=== PATIENT | male | born 1965 | race Caucasian/White ===

== ENCOUNTER 2017-09-29 08:35 | Observation (INO) | payer BC ==
[~2017-09-29] VITALS: Ht 172.7 cm; Wt 97.7 kg
[~2017-09-29 08:35] MED LIST: ALPR0.254 PO; ALPR0.2550; ASP325T PO; HYDR-3454 PO; MULT-974 PO
--- NOTE | 2017-09-29 08:55 | ED Chest Pain ---
General Stated Complaint: CP Source: patient Exam Limitations: no limitations History of Present Illness Date Seen by Provider: September 29, 2017 Time Seen by Provider: 08:50 Initial Comments Patient presents to the ER by private conveyance with a chief complaint that off -and-on he's had some pressure in the middle of his chest that he is associated past with gas pain. This head pressure started up sometime Friday, 2 days ago. It went away whenever he laid down and rested. Friday he also notes both of his feet were swollen with some pitting edema that went away after he put him up and rested all day. He didn't any problems yesterday and then today he woke up fine but started having the pressure again mounting and getting stronger. He's never had feet swelling before. He has had a cardiac workup by Dr. Whitfield with stress test several years ago an echocardiogram. He's never had a heart attack but he has a maternal history of heart attack at age 42. He does not smoke but he does chew about half a can per day and drinks beer. He does not follow a primary care doctor but he does take a blood pressure medicine as well as antacid that he did take this morning. He has not had any aspirin today. He does not take any blood thinners. She does not have any known thyroid , cholesterol, diabetes. Pain does not radiate nor is accompanied by sweats, nausea, cough, shortness of breath. Allergies and Home Medications Allergies Coded Allergies: No Known Drug Allergies (Unverified , 06/28/09) Home Medications Alprazolam 0.25 Mg Tablet, 0.25 PO PRN PRN for ANXIETY, (Reported) Aspirin 325 Mg Tab, 325 MG PO DAILY, (Reported) Hydrocodone Bit/Acetaminophen 1 Each Tablet, 1-2 TAB PO EVERY 4-6HRS PRN for PAIN Prescribed by: TASHA CALLOWAY on 07/12/14 1026 Multivitamin 1 Each Tablet, 1 EACH PO DAILY, (Reported) Patient Home Medication List Home Medication List Reviewed: Yes Review of Systems Constitutional: No chills, No diaphoresis EENTM: No Blurred Vision, No Double Vision Respiratory: Denies Cough, Denies Shortness of Air Cardiovascular: See HPI, Edema; Denies Irregular Heart Rate, Denies Palpitations, Denies Syncope Gastrointestinal: Denies Abdomen Distended, Denies Abdominal Pain, Denies Constipated, Denies Diarrhea, Denies Nausea Genitourinary: Denies Burning, Denies Discharge, Denies Drainage Musculoskeletal: No back pain, No joint pain Skin: No pruritus, No rash Psychiatric/Neurological: Denies Headache, Denies Numbness Past Ghdehht-Poylnv-Lsqhch Hx Patient Social History Alcohol Use: Regular Use Alcohol Beverage of Choice: Beer Recreational Drug Use: No Smoking Status: Never a Smoker Type Used: Smokeless Tobacco (0.5 can/day) Recent Foreign Travel: No Contact w/Someone Who Travel: No Immunizations Up To Date Tetanus Booster (TDap): Less than 5yrs Past Medical History Reproductive Disorders: No Gastroesophageal Reflux Anxiety Family Medical History Chest pain 19 MOTHER Family history: Coronary thrombosis 19 MOTHER (MOTHER HAD OPEN HEART SURGERY) Family history: Diabetes mellitus 19 FATHER, Onset:60 years & older (LATE ONSET DM ) 19 MOTHER G8 SISTER (SISTER HAS INSULIN DEP DM) Heart disease 19 MOTHER Hypercholesterolemia 19 MOTHER Myocardial infarction 19 MOTHER ( FROM [place] AT AGE 52) Physical Exam Vital Signs Vital Signs - First Documented 09/29/17 08:40 Temp 97.5 Pulse 89 Resp 18 B/P (MAP) 175/119 (137) O2 Delivery Room Air Capillary Refill : General Appearance: No Apparent Distress, WD/WN HEENT: PERRL/EOMI, Pharynx Normal, Moist Mucous Membranes Neck: Full Range of Motion, Normal Inspection, Non Tender, Supple; No JVD Respiratory: Chest Non Tender, Lungs Clear, Normal Breath Sounds, No Accessory Muscle Use, No Respiratory Distress Cardiovascular: Regular Rate, Rhythm, No Gallop, No JVD, No Murmur, Normal Peripheral Pulses, Other (trace pedal edema) Gastrointestinal: Normal Bowel Sounds, Non Tender, Soft Extremity: Normal Capillary Refill, Normal Inspection, Non Tender, No Calf Tenderness, Pedal Edema (trace, bilateral) Neurologic/Psychiatric: Alert, Oriented x3 Skin: Normal Color, Warm/Dry Progress/Results/Core Measures Results/Orders Lab Results Laboratory Tests Test 09/29/17 09:15 Range/Units White Blood Count 8.8 4.3-11.0 10^3/uL Red Blood Count 4.26 L 4.35-5.85 10^6/uL Hemoglobin 15.1 13.3-17.7 G/DL Hematocrit 42 40-54 % Mean Corpuscular Volume 97 80-99 FL Mean Corpuscular Hemoglobin 35 H 25-34 PG Mean Corpuscular Hemoglobin Concent 36 32-36 G/DL Red Cell Distribution Width 11.2 10.0-14.5 % Platelet Count 222 130-400 10^3/uL Mean Platelet Volume 8.9 7.4-10.4 FL Neutrophils (%) (Auto) 69 42-75 % Lymphocytes (%) (Auto) 11 L 12-44 % Monocytes (%) (Auto) 12 0-12 % Eosinophils (%) (Auto) 8 0-10 % Basophils (%) (Auto) 0 0-10 % Neutrophils # (Auto) 6.1 1.8-7.8 X 10^3 Lymphocytes # (Auto) 1.0 1.0-4.0 X 10^3 Monocytes # (Auto) 1.1 H 0.0-1.0 X 10^3 Eosinophils # (Auto) 0.7 H 0.0-0.3 10^3/uL Basophils # (Auto) 0.0 0.0-0.1 10^3/uL Prothrombin Time 13.1 12.2-14.7 SEC INR Comment 1.0 0.8-1.4 Activated Partial Thromboplast Time 28 24-35 SEC Sodium Level 130 L 135-145 MMOL/L Potassium Level 4.0 3.6-5.0 MMOL/L Chloride Level 98 98-107 MMOL/L Carbon Dioxide Level 21 21-32 MMOL/L Anion Gap 11 5-14 MMOL/L Blood Urea Nitrogen 9 7-18 MG/DL Creatinine 0.84 0.60-1.30 MG/DL Estimat Glomerular Filtration Rate > 60 BUN/Creatinine Ratio 11 Glucose Level 167 H 70-105 MG/DL Calcium Level 9.4 8.5-10.1 MG/DL Magnesium Level 1.9 1.8-2.4 MG/DL Total Bilirubin 0.8 0.1-1.0 MG/DL Aspartate Amino Transf (AST/SGOT) 20 5-34 U/L Alanine Aminotransferase (ALT/SGPT) 22 0-55 U/L Alkaline Phosphatase 71 40-136 U/L Myoglobin 35.6 10.0-92.0 NG/ML Troponin I < 0.30 <0.30 NG/ML B-Type Natriuretic Peptide 13.9 <100.0 PG/ML Total Protein 7.3 6.4-8.2 GM/DL Albumin 4.4 3.2-4.5 GM/DL Lipase 16 8-78 U/L My Orders Orders - BONIFACIO BRITT Cbc With Automated Diff (09/29/17 08:49) Magnesium (09/29/17 08:49) Chest 1 View, Ap/Pa Only (09/29/17 08:49) Ekg Tracing (09/29/17 08:49) Cardiac Profile 1 (09/29/17 08:49) Comprehensive Metabolic Panel (09/29/17 08:49) Myoglobin Serum (09/29/17 08:49) Protime With Inr (09/29/17 08:49) Partial Thromboplastin Time (09/29/17 08:49) O2 (09/29/17 08:49) Monitor-Rhythm Ecg Trace Only (09/29/17 08:49) Lipid Panel (09/30/17 06:00) Aspirin Chewable Tablet (Baby Aspirin Ch (09/29/17 09:00) Nitroglycerin 0.4 Mg Btl 25's (Nitrostat (09/29/17 09:00) Saline Lock/Iv-Start (09/29/17 08:49) Lipase (09/29/17 08:49) BNP (09/29/17 08:49) Medications Given in ED Current Medications Medications Dose Ordered Sig/Tami Route Start Time Stop Time Status Last Admin Dose Admin Aspirin 324 mg ONCE ONCE PO 09/29/17 09:00 09/29/17 09:01 DC 09/29/17 09:06 324 MG Nitroglycerin 0.4 mg UD PRN SL 09/29/17 09:00 09/29/17 09:07 0.4 MG Vital Signs/I&O 09/29/17 09/29/17 08:40 09:06 Temp 97.5 97.5 Pulse 89 Resp 18 B/P (MAP) 175/119 (137) O2 Delivery Room Air Progress Progress Note : Time: 08:56 Progress Note Give him some aspirin do a chest pain workup. If his initial troponin and EKG are normal may try a GI cocktail in addition. We'll also speak with his manager reporting. November [address] Whitfield: Normal global systolic function with an EF of 55%. Mild mitral and tricuspid regurgitation. Pulmonary artery systolic pressure 25-30 mmHg. Low risk by the EDACS Score. If the patient also has: (1) EKG without new ischemic changes and (2) negative initial and 2-hour troponins, then this patient is safe for discharge to early outpatient follow-up investigation (or proceed to earlier inpatient testing). If EKG with ischemic changes or positive troponin, they are not low risk and require normal risk stratification. Initial ECG Impression Date: September 29, 2017 Initial ECG Impression Time: 08:47 Initial ECG Rate: 94 Initial ECG Rhythm: Normal Sinus Initial ECG Intervals: Normal Initial ECG Impression: Normal, Nonspecific Changes Initial ECG Comparisson: Unchanged Comment Some respiratory artifact but no ST elevation or depression. Incomplete right bundle-branch block. Diagnostic Imaging Diagonstic Imaging: Xray (1v) Plain Films/CT/US/NM/MRI: chest Comments NAME: [facility] REC#: [id number] PT STATUS: REG ER : 1965 PHYSICIAN: BONIFACIO BRITT MD ADMIT DATE: 09/29/17/ER Draft Date of Exam:09/29/17 CHEST 1 VIEW, AP/PA ONLY INDICATION: Chest pressure. TECHNIQUE: A frontal chest was obtained at 0901 hours. COMPARISON: 10/25/2013. FINDINGS: The heart and mediastinal silhouette are normal in appearance. The lungs are clear. There is no pneumothorax or pleural fluid. IMPRESSION: Negative chest. Dictated on workstation # [id number] Dict: 09/29/17 0908 Trans: 09/29/17 0909 [id number] Interpreted by: DANY NAVA MD Electronically signed by: Reviewed: Reviewed by Me Consults : Consulting Physician: ESTHER HILTON MD FACP FACC CCDS Consults Notes Recommends observation and ACS rule out. He would like the patient put in under the hospitalists and will eventually need the patient to establish care with a primary care provider and he will be happy to consult. Departure Communication (Admissions) Time/Spoke to Admitting Phy: 10:09 Dr Nichole: Discussed case lab imaging findings and he will see the patient. Time/Spoke to Consulting Phy: 10:08 ACS r/O per Denny Hilton Impression Primary Impression: ACS (acute coronary syndrome) Additional Impression: Chest tightness or pressure Disposition: 09 ADMITTED INPATIENT Condition: Stable Admissions Decision to Admit Reason: Admit from ER (General) Decision to Admit/Date: September 29, 2017 Time/Decision to Admit Time: 10:09 Departure-Patient Inst. Referrals: SAYRA NICHOLE DO (PCP/Family) Primary Care Physician BONIFACIO BRITT September 29, 2017 08:55
[2017-09-29] MEDS ORDERED: NITROGLYCERIN 0.4 MG SL TABS BTL 25'S SL PRN (09:00)
[2017-09-29] MEDS ORDERED: ASPIRIN 81 MG CHEW (CHILDREN'S ASA) PO ONE (09:00)
--- NOTE | 2017-09-29 09:09 | Diagnostic Imaging Report ---
INDICATION: Chest pressure. TECHNIQUE: A frontal chest was obtained at 0901 hours. COMPARISON: 10/25/2013. FINDINGS: The heart and mediastinal silhouette are normal in appearance. The lungs are clear. There is no pneumothorax or pleural fluid. IMPRESSION: Negative chest. Dictated by: Dictated on workstation # [id number]
[2017-09-29 09:27] LABS: BASOPHILS % (AUTO) 0 % (0-10); EOSINOPHILS # (AUTO) 0.7 10^3/uL (0.0-0.3); EOSINOPHILS % (AUTO) 8 % (0-10); HEMATOCRIT 42 % (40-54); HEMOGLOBIN 15.1 G/DL (13.3-17.7); LYMPHOCYTES % (AUTO) 11 % (12-44); MEAN CORPUSCULAR HEMOGLOBIN 35 PG (25-34); MEAN CORPUSCULAR HGB CONC 36 G/DL (32-36); MEAN CORPUSCULAR VOLUME 97 FL (80-99); MEAN PLATELET VOLUME 8.9 FL (7.4-10.4); MONOCYTES # (AUTO) 1.1 X 10^3 (0.0-1.0); MONOCYTES % (AUTO) 12 % (0-12); NEUTROPHILS # (AUTO) 6.1 X 10^3 (1.8-7.8); NEUTROPHILS % (AUTO) 69 % (42-75); PLATELET COUNT 222 10^3/uL (130-400); RED BLOOD COUNT 4.26 10^6/uL (4.35-5.85); RED CELL DISTRIBUTION WIDTH 11.2 % (10.0-14.5); WHITE BLOOD COUNT 8.8 10^3/uL (4.3-11.0)
[2017-09-29 09:44] LABS: PROTHROMBIN TIME PATIENT 13.1 SEC (12.2-14.7)
[2017-09-29 09:47] LABS: ALANINE AMINOTRANSFERASE 22 U/L (0-55); ALBUMIN 4.4 GM/DL (3.2-4.5); ALKALINE PHOSPHATASE 71 U/L (40-136); BILIRUBIN,TOTAL 0.8 MG/DL (0.1-1.0); BUN/CREATININE RATIO 11; CALCIUM 9.4 MG/DL (8.5-10.1); CARBON DIOXIDE 21 MMOL/L (21-32); CHLORIDE 98 MMOL/L (98-107); CREATININE SERUM 0.84 MG/DL (0.60-1.30); GFR ESTIMATED > 60; GLUCOSE 167 MG/DL (70-105); LIPASE 16 U/L (8-78); MAGNESIUM 1.9 MG/DL (1.8-2.4); SODIUM 130 MMOL/L (135-145); TOTAL PROTEIN 7.3 GM/DL (6.4-8.2)
[2017-09-29 09:54] LABS: MYOGLOBIN SERUM 35.6 NG/ML (10.0-92.0)
--- NOTE | 2017-09-29 11:33 | Consultation-Cardiology ---
HPI-Cardiology Cardiology Consultation: Date of Consultation 09/29/17 Time Seen by Provider: 11:40 Date of Admission 09-29-17 Attending Physician Gordon Childress DO Admitting Physician Gordon Childress DO Consulting Physician Myranda Hilton MD HPI: Chief Complaint: Chest pain Mr. Bravo is a 52 year old male admitted to [facility] from the ED with c/o chest pain. He reports he woke up Friday morning with mid-sternal chest pressure along with a burning sensation in his chest. He states it stayed localized to the center of his chest. He states it stayed constant and lasted for several hours. It gradually resolved. He denies any SOB, palpitations, syncope or near syncope. He states he did drink a few beers on Friday to see if it would help him belch. He reports he also had pitting ankle edema when he woke up. This gradually resolved with elevation. He does report he had been at a [employer] on Friday evening and had drank quite a bit of beer. He states no c/o discomfort on Friday. 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 He states it stayed constant, with no radiation. No other associated symptoms. He reports he is currently pain free. He does not report any c/o n/v/d. No c/o fever or chills. He continues to use chew tobacco, approx 1 can every 2 days. Review of Systems-Cardiology Review of Systems Constitutional: No chills, No fever; weight gain Eyes: No vision change Ears/Nose/Throat: No epistaxis, No recent hearing loss Respiratory: As described under HPI Cardiovascular: As described under HPI Gastrointestinal: No constipation, No diarrhea, No nausea, No vomiting Genitourinary: No dysuria, No hematuria Musculoskeletal: other (chronic left knee pain) Skin: No rash, No ulcerations Psychiatric/Neurological: anxiety; No seizure, No syncope Hematologic: No bleeding abnormalities XXR-Pquxvd-Lzytit Hx Patient Social History Alcohol Use: Occasionally Uses Recreational Drug Use: No Smoking Status: Never a Smoker Type Used: Smokeless Tobacco Recent Foreign Travel: No Recent Infectious Disease Expo: No Immunizations Up To Date Tetanus Booster (TDap): Less than 5yrs Past Medical History PMH As described under Assessment. Family Medical History Family Medical History: Family h/o CAD. Mother had CAD, CABG, HLD and DM. She at age 52. Father had DM. Sister has DM Family History: Chest pain 19 MOTHER Family history: Coronary thrombosis 19 MOTHER (MOTHER HAD OPEN HEART SURGERY) Family history: Diabetes mellitus 19 FATHER, Onset:60 years & older (LATE ONSET DM ) 19 MOTHER G8 SISTER (SISTER HAS INSULIN DEP DM) Heart disease 19 MOTHER Hypercholesterolemia 19 MOTHER Myocardial infarction 19 MOTHER ( FROM [place] AT AGE 52) Allergies and Home Medications Allergies Coded Allergies: No Known Drug Allergies (Unverified , 06/28/09) Home Medications Alprazolam 0.25 Mg Tablet, 0.25 MG PO TID PRN for ANXIETY, (Reported) Aspirin 325 Mg Tablet, 325 MG PO DAILY PRN for PAIN-MILD, (Reported) Lisinopril 10 Mg Tablet, 10 MG PO DAILY, (Reported) Multivitamin 1 Each Tablet, 1 TAB PO DAILY, (Reported) Pantoprazole Sodium 40 Mg Tablet.dr, 40 MG PO DAILY, (Reported) Patient Home Medication List Home Medication List Reviewed: Yes Physical Exam-Cardiology Physical Exam Vital Signs/I&O 09/29/17 09/30/17 09/30/17 09/30/17 23:57 01:00 04:00 07:00 Temp 96.1 96.2 Pulse 70 62 78 73 Resp 18 18 B/P (MAP) 138/87 (104) 143/86 (105) Pulse Ox 97 98 O2 Delivery Room Air Room Air 09/30/17 00:00 Intake Total 1660 ml Output Total 2150 ml Balance -490 ml Capillary Refill : NONE Constitutional: AAO x 3, well-developed, well-nourished HEENT: PERRL, hearing is well preserved, oral hygience is good Neck: No carotid bruit; carotid pulses are 2 + bilaterally Respiratory: No accessory muscle use, No respiratory distress; chest expansion is symmetric, chest is bilaterally symmetric, lungs clear to percussion, lungs clear to auscultation Cardiovascular: regular rate-rhythm; No JVD; S1 and S2 Gastrointestinal: No tender; soft, round, distended, audible bowel sounds Rectal: No deferred Extremities: no lower extremity edema bilateral Neurologic/Psychiatric: grossly intact, power is 5/5 both on sides Skin: No rash, No ulcerations Data Review Labs Laboratory Tests 09/29/17 09:15: White Blood Count 8.8, Red Blood Count 4.26L, Hemoglobin 15.1, Hematocrit 42, Mean Corpuscular Volume 97, Mean Corpuscular Hemoglobin 35H, Mean Corpuscular Hemoglobin Concent 36, Red Cell Distribution Width 11.2, Platelet Count 222, Mean Platelet Volume 8.9, Neutrophils (%) (Auto) 69, Lymphocytes (%) (Auto) 11L , Monocytes (%) (Auto) 12, Eosinophils (%) (Auto) 8, Basophils (%) (Auto) 0, Neutrophils # (Auto) 6.1, Lymphocytes # (Auto) 1.0, Monocytes # (Auto) 1.1H, Eosinophils # (Auto) 0.7H, Basophils # (Auto) 0.0, Prothrombin Time 13.1, INR Comment 1.0, Activated Partial Thromboplast Time 28, Sodium Level 130L, Potassium Level 4.0, Chloride Level 98, Carbon Dioxide Level 21, Anion Gap 11, Blood Urea Nitrogen 9, Creatinine 0.84, Estimat Glomerular Filtration Rate > 60 , BUN/Creatinine Ratio 11, Glucose Level 167H, Calcium Level 9.4, Magnesium Level 1.9, Total Bilirubin 0.8, Aspartate Amino Transf (AST/SGOT) 20, Alanine Aminotransferase (ALT/SGPT) 22, Alkaline Phosphatase 71, Myoglobin 35.6, Troponin I < 0.30, B-Type Natriuretic Peptide 13.9, Total Protein 7.3, Albumin 4.4, Lipase 16 09/29/17 18:05: Troponin I < 0.30 09/30/17 04:05: Sodium Level 134L, Potassium Level 4.3, Chloride Level 103, Carbon Dioxide Level 20L, Anion Gap 11, Blood Urea Nitrogen 9, Creatinine 0.87, Estimat Glomerular Filtration Rate > 60, BUN/Creatinine Ratio 10, Glucose Level 169H, Calcium Level 8.8, Magnesium Level 2.2, Total Bilirubin 0.7, Aspartate Amino Transf (AST/SGOT) 16, Alanine Aminotransferase (ALT/SGPT) 22, Alkaline Phosphatase 61, Troponin I < 0.30, Total Protein 6.4, Albumin 3.9, Triglycerides Level 185H, Cholesterol Level 185, LDL Cholesterol Direct 117, VLDL Cholesterol 37, HDL Cholesterol 49 Radiology NAME: [facility] REC#: [id number] PT STATUS: REG ER : 1965 PHYSICIAN: BONIFACIO BRITT MD ADMIT DATE: 09/29/17/ER Draft Date of Exam:09/29/17 CHEST 1 VIEW, AP/PA ONLY INDICATION: Chest pressure. TECHNIQUE: A frontal chest was obtained at 0901 hours. COMPARISON: 10/25/2013. FINDINGS: The heart and mediastinal silhouette are normal in appearance. The lungs are clear. There is no pneumothorax or pleural fluid. IMPRESSION: Negative chest. Dictated on workstation # [id number] Dict: 09/29/1708 Trans: 09/29/17 0909 [id number] Interpreted by: DANY NAVA MD Electronically signed by: ECG Impression ECG Initial ECG Rhythm: Normal Sinus A/P-Cardiology Assessment/Admission Diagnosis Chest pain of undetermined etiology - no evidence of ACS MPI of October 26, 2013 did not show ischemia or infarction and LVEF was 58% Echo fo 11/11/13 showed LVEF 55% and mild MR & TR and PASP 25-30 mmHhg Hyperglycemia, suggestive of DM II Elevated BMI of approx 32 Heavy alcohol use (approx 40-45 beers per week) Hypertension - improved with beta-marguerite therapy Hyponatremia upon presentation in October 2013 and lab of September 29, 2017, probably related to heavy alcohol use resulting in diuresis Elevated triglycerides during hospitalization of October 2013 Chews tobacco. Cessation has been advised Non-compliance with f/u Clinical Quality Measures AMI/AHF: ASA po Prior to arrival: JOSELITO Mejia September 29, 2017 11:33
[2017-09-29] MEDS ORDERED: ALPR0.254 PO (12:55)
[2017-09-29] MEDS ORDERED: MULT-35 PO (12:55)
[2017-09-29] MEDS ORDERED: ASPI-808 PO (12:55)
[2017-09-29] MEDS ORDERED: PANT40TA3 PO (12:55)
[2017-09-29] MEDS ORDERED: LISI10TA2 PO (12:55)
[2017-09-29 12:57] VITALS: BP 170/103
--- NOTE | 2017-09-29 14:14 | Consultation-Cardiology ---
HPI-Cardiology Cardiology Consultation: Date of Consultation 09/29/17 Time Seen by Provider: 13:00 Date of Admission Attending Physician Gordon Childress DO Admitting Physician Gordon Childress DO Consulting Physician ESTHER DIANA MD, MA, FACP, FACC, FSCAI, CCDS HPI: Chief Complaint: Chest pain Mr. Ruffin is a 52 year old male admitted to [facility] from the ED with c/o chest pain. He reports he woke up Friday morning with mid-sternal chest pressure along with a burning sensation in his chest. He states it stayed localized to the center of his chest. He states it stayed constant and lasted for several hours. It gradually resolved. He denies any SOB, palpitations, syncope or near syncope. He states he did drink a few beers on Friday to see if it would help him belch. He reports he also had pitting ankle edema when he woke up. This gradually resolved with elevation. He does report he had been at a [employer] on Friday evening and had drank quite a bit of beer. He states no c/o discomfort on Friday. 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 He states it stayed constant, with no radiation. No other associated symptoms. He reports he is currently pain free. He does not report any c/o n/v/d. No c/o fever or chills. He continues to use chew tobacco, approx 1 can every 2 days. Review of Systems-Cardiology Review of Systems Constitutional: No chills, No fever; weight gain Eyes: No vision change Ears/Nose/Throat: No epistaxis, No recent hearing loss Respiratory: As described under HPI Cardiovascular: As described under HPI Gastrointestinal: No constipation, No diarrhea, No nausea, No vomiting Genitourinary: No dysuria, No hematuria Musculoskeletal: other (chronic left knee pain) Skin: No rash, No ulcerations Psychiatric/Neurological: anxiety; No seizure, No syncope Hematologic: No bleeding abnormalities JLQ-Pbvlpk-Okmevm Hx Patient Social History Alcohol Use: Occasionally Uses Recreational Drug Use: No Smoking Status: Never a Smoker Type Used: Smokeless Tobacco Recent Foreign Travel: No Recent Infectious Disease Expo: No Immunizations Up To Date Tetanus Booster (TDap): Less than 5yrs Past Medical History PMH As described under Assessment. Family Medical History Family Medical History: Family h/o CAD. Mother had CAD, CABG, HLD and DM. She at age 52. Father had DM. Sister has DM Family History: Chest pain 19 MOTHER Family history: Coronary thrombosis 19 MOTHER (MOTHER HAD OPEN HEART SURGERY) Family history: Diabetes mellitus 19 FATHER, Onset:60 years & older (LATE ONSET DM ) 19 MOTHER G8 SISTER (SISTER HAS INSULIN DEP DM) Heart disease 19 MOTHER Hypercholesterolemia 19 MOTHER Myocardial infarction 19 MOTHER ( FROM [place] AT AGE 52) Allergies and Home Medications Allergies Coded Allergies: No Known Drug Allergies (Unverified , 06/28/09) Home Medications Alprazolam 0.25 Mg Tablet, 0.25 MG PO TID PRN for ANXIETY, (Reported) Aspirin 325 Mg Tablet, 325 MG PO DAILY PRN for PAIN-MILD, (Reported) Lisinopril 10 Mg Tablet, 10 MG PO DAILY, (Reported) Multivitamin 1 Each Tablet, 1 TAB PO DAILY, (Reported) Pantoprazole Sodium 40 Mg Tablet.dr, 40 MG PO DAILY, (Reported) Patient Home Medication List Home Medication List Reviewed: Yes Physical Exam-Cardiology Physical Exam Vital Signs/I&O 09/29/17 09/29/17 09/29/17 09/29/17 08:40 09:06 11:06 12:40 Temp 97.5 97.5 97.5 Pulse 89 85 79 Resp 18 18 B/P (MAP) 175/119 (137) 123/80 (137) Pulse Ox 99 O2 Delivery Room Air Room Air 09/29/17 12:57 Temp 97.7 Pulse 73 Resp 20 B/P (MAP) 170/103 (125) Pulse Ox 99 O2 Delivery Room Air Capillary Refill : NONE Constitutional: AAO x 3, well-developed, well-nourished HEENT: PERRL, hearing is well preserved, oral hygience is good Neck: No carotid bruit; carotid pulses are 2 + bilaterally Respiratory: No accessory muscle use, No respiratory distress; chest expansion is symmetric, chest is bilaterally symmetric, lungs clear to percussion, lungs clear to auscultation Cardiovascular: regular rate-rhythm; No JVD; S1 and S2 Gastrointestinal: No tender; soft, round, distended, audible bowel sounds Rectal: No deferred Extremities: no lower extremity edema bilateral Neurologic/Psychiatric: grossly intact, power is 5/5 both on sides Skin: No rash, No ulcerations Data Review Labs Laboratory Tests 09/29/17 09:15: White Blood Count 8.8, Red Blood Count 4.26L, Hemoglobin 15.1, Hematocrit 42, Mean Corpuscular Volume 97, Mean Corpuscular Hemoglobin 35H, Mean Corpuscular Hemoglobin Concent 36, Red Cell Distribution Width 11.2, Platelet Count 222, Mean Platelet Volume 8.9, Neutrophils (%) (Auto) 69, Lymphocytes (%) (Auto) 11L , Monocytes (%) (Auto) 12, Eosinophils (%) (Auto) 8, Basophils (%) (Auto) 0, Neutrophils # (Auto) 6.1, Lymphocytes # (Auto) 1.0, Monocytes # (Auto) 1.1H, Eosinophils # (Auto) 0.7H, Basophils # (Auto) 0.0, Prothrombin Time 13.1, INR Comment 1.0, Activated Partial Thromboplast Time 28, Sodium Level 130L, Potassium Level 4.0, Chloride Level 98, Carbon Dioxide Level 21, Anion Gap 11, Blood Urea Nitrogen 9, Creatinine 0.84, Estimat Glomerular Filtration Rate > 60 , BUN/Creatinine Ratio 11, Glucose Level 167H, Calcium Level 9.4, Magnesium Level 1.9, Total Bilirubin 0.8, Aspartate Amino Transf (AST/SGOT) 20, Alanine Aminotransferase (ALT/SGPT) 22, Alkaline Phosphatase 71, Myoglobin 35.6, Troponin I < 0.30, B-Type Natriuretic Peptide 13.9, Total Protein 7.3, Albumin 4.4, Lipase 16 A/P-Cardiology Assessment/Admission Diagnosis Chest pain of undetermined etiology - no evidence of ACS MPI of October 26, 2013 did not show ischemia or infarction and LVEF was 58% Echo fo 11/11/13 showed LVEF 55% and mild MR & TR and PASP 25-30 mmHhg Hyperglycemia, suggestive of DM II Elevated BMI of approx 32.7 Heavy alcohol use (approx 40-45 beers per week) Hypertension - improved with beta-marguerite therapy Hyponatremia upon presentation in October 2013 and lab of September 29, 2017, probably related to heavy alcohol use resulting in diuresis Elevated triglycerides during hospitalization of October 2013 Chews tobacco. Cessation has been advised Non-compliance with f/u Discussion and Recomendations * We discussed risk factor mod * We advised him to avoid alcohol use * We advised cor risk strat * We answered questions Clinical Quality Measures AMI/AHF: ASA po Prior to arrival: ESTHER Meng MD FACP FAC CCDS September 29, 2017 14:14
[2017-09-29] MEDS ORDERED: meTOproloL SUCCINATE 50 MG (TOPROL XL) TAB PO NR (14:15)
[2017-09-29] MEDS ORDERED: CATHETER FLUSH 10 ML SYR IV PRN (14:30)
[2017-09-29 15:45] VITALS: BP 144/80
[2017-09-29] MEDS: NS IV 1000 ML 1,000 ML IV SCH (16:03)
--- NOTE | 2017-09-29 19:03 | History & Physicial ---
History of Present Illness History of Present Illness Reason for visit/HPI Patient states he had compression middle of chest started on Friday. Patient had a burning sensation in the chest area Patient then states this morning chest discomfort worse and came out to the emergency room. Mother had heart attack age 42. Mother and sister have diabetes. Patient had chest tightness and pressure. Patient denies diaphoresis or radiation of pain. Patient admits to chewing. Patient admits to drinking beers from 20-30 week Date of Admission September 29, 2017 at 10:20 Time Seen by Provider: 19:00 I consulted on this patient on 09/29/17 18:53 Attending Physician Gordon Nichole DO Admitting Physician Gordon Nichole DO Consult ESTHER DIANA MD FACP FACC CCDS Allergies and Home Medications Allergies Coded Allergies: No Known Drug Allergies (Unverified , 06/28/09) Home Medications Alprazolam 0.25 Mg Tablet, 0.25 MG PO TID PRN for ANXIETY, (Reported) Aspirin 325 Mg Tablet, 325 MG PO DAILY PRN for PAIN-MILD, (Reported) Lisinopril 10 Mg Tablet, 10 MG PO DAILY, (Reported) Multivitamin 1 Each Tablet, 1 TAB PO DAILY, (Reported) Pantoprazole Sodium 40 Mg Tablet.dr, 40 MG PO DAILY, (Reported) Patient Home Medication List Home Medication List Reviewed: Yes Past Zhcctkr-Xdgcdy-Qbepte Hx Patient Social History Marrital Status: Employed/Student: employed Alcohol Use: Occasionally Uses Number of Drinks Today: 0 Alcohol Beverage of Choice: Beer Recreational Drug Use: No Smoking Status: Never a Smoker Type Used: Smokeless Tobacco Physical Abuse Screen: No Sexual Abuse: No Recent Foreign Travel: No Contact w/other who traveled: No Recent Hopitalizations: No Recent Infectious Disease Expo: No Immunizations Up To Date Tetanus Booster (TDap): Less than 5yrs Seasonal Allergies Seasonal Allergies: No Surgeries No Respiratory No Cardiovascular Yes Neurological No Reproductive System Hx Reproductive Disorders: No Sexually Transmitted Disease: No HIV/AIDS: No Genitourinary No Gastrointestinal Yes Gastroesophageal Reflux Musculoskeletal No Endocrine History of Endocrine Disorders: No HEENT History of HEENT Disorders: No Cancer No Psychosocial History of Psychiatric Problem: Yes Behavioral Health Disorders: Anxiety Integumentary History of Skin or Integumenta: No Blood Transfusions History of Blood Disorders: No Adverse Reaction to a Blood Tr: No Family Medical History Family Hx: Chest pain 19 MOTHER Family history: Coronary thrombosis 19 MOTHER (MOTHER HAD OPEN HEART SURGERY) Family history: Diabetes mellitus 19 FATHER, Onset:60 years & older (LATE ONSET DM ) 19 MOTHER G8 SISTER (SISTER HAS INSULIN DEP DM) Heart disease 19 MOTHER Hypercholesterolemia 19 MOTHER Myocardial infarction 19 MOTHER ( FROM [place] AT AGE 52) Constitutional: no symptoms reported EENTM: no symptoms reported Respiratory: no symptoms reported Cardiovascular: edema Gastrointestinal: no symptoms reported Genitourinary: no symptoms reported Physical Exam Vital Signs Vital Signs - First Documented 09/29/17 09/29/17 08:40 11:06 Temp 97.5 Pulse 89 Resp 18 B/P (MAP) 175/119 (137) Pulse Ox 99 O2 Delivery Room Air Capillary Refill : NONE General Appearance: No Apparent Distress Eyes: Bilateral Eye Normal Inspection HEENT: Normal ENT Inspection Neck: Full Range of Motion, Normal Inspection Respiratory: Lungs Clear, Normal Breath Sounds, No Accessory Muscle Use, No Respiratory Distress Cardiovascular: No Murmur Assessment/Plan Assessment and Plan Chest pressure. Chest pain. Hypertension. Chews tobacco. Drinks beer 20-30 a week Admission Diagnosis Admission Status: Observation Clinical Quality Measures AMI/AHF: ASA po Prior to arrival: No DVT/VTE Risk/Contraindication: Risk Factor Score Per Nursin RFS Level Per Nursing on Admit: 2=Moderate GORDON NICHOLE DO September 29, 2017 19:03
[2017-09-29] MEDS ORDERED: ALPRAZolam 0.25 MG (XANAX) TAB PO PRN (19:15)
[2017-09-29 19:25] VITALS: BP 153/66
[2017-09-29 23:57] VITALS: BP 138/87
[2017-09-30] MEDS: NS IV 1000 ML 1,000 ML IV SCH ×2 (00:39→12:04)
[2017-09-30 04:00] VITALS: BP 143/86
[2017-09-30 05:11] LABS: ALANINE AMINOTRANSFERASE 22 U/L (0-55); ALBUMIN 3.9 GM/DL (3.2-4.5); ALKALINE PHOSPHATASE 61 U/L (40-136); BILIRUBIN,TOTAL 0.7 MG/DL (0.1-1.0); BUN/CREATININE RATIO 10; CALCIUM 8.8 MG/DL (8.5-10.1); CARBON DIOXIDE 20 MMOL/L (21-32); CHLORIDE 103 MMOL/L (98-107); CHOLESTEROL 185 MG/DL (< 200); CREATININE SERUM 0.87 MG/DL (0.60-1.30); GFR ESTIMATED > 60; GLUCOSE 169 MG/DL (70-105); HDL CHOLESTEROL 49 MG/DL (40-60); MAGNESIUM 2.2 MG/DL (1.8-2.4); POTASSIUM 4.3 MMOL/L (3.6-5.0); SODIUM 134 MMOL/L (135-145); TOTAL PROTEIN 6.4 GM/DL (6.4-8.2); TRIGLYCERIDES 185 MG/DL (<150); VLDL CHOLESTEROL 37 MG/DL (5-40)
[2017-09-30] MEDS ORDERED: PANTOPRAZOLE 40 MG (PROTONIX) TAB PO SCH (07:00)
--- NOTE | 2017-09-30 07:50 | Progress Note-Cardiology ---
Cardiology SOAP Progress Note Subjective: No further chest discomfort Denies palp or syncope or shortness of breath Objective: I&O/Vital Signs 09/29/17 09/30/17 09/30/17 23:57 01:00 04:00 Temp 96.1 96.2 Pulse 70 62 78 Resp 18 18 B/P (MAP) 138/87 (104) 143/86 (105) Pulse Ox 97 98 O2 Delivery Room Air Room Air 09/30/17 00:00 Intake Total 1660 ml Output Total 2150 ml Balance -490 ml Weight (Pounds): 215 Weight (Ounces): 5.0 Weight (Calculated Kilograms): 97.556349 Constitutional: AAO x 3, well-developed, well-nourished Respiratory: No accessory muscle use, No respiratory distress; chest expansion is symmetric, chest is bilaterally symmetric, lungs clear to percussion, lungs clear to auscultation Cardiovascular: regular rate-rhythm; No JVD; S1 and S2 Gastrointestional: No tender; soft, round, distended, audible bowel sounds Extremities: no lower extremity edema bilateral Neurologic/Psychiatric: grossly intact, power is 5/5 both on sides Skin: No rash, No ulcerations Results/Procedures: Labs Laboratory Tests 09/29/17 09:15: White Blood Count 8.8, Red Blood Count 4.26L, Hemoglobin 15.1, Hematocrit 42, Mean Corpuscular Volume 97, Mean Corpuscular Hemoglobin 35H, Mean Corpuscular Hemoglobin Concent 36, Red Cell Distribution Width 11.2, Platelet Count 222, Mean Platelet Volume 8.9, Neutrophils (%) (Auto) 69, Lymphocytes (%) (Auto) 11L , Monocytes (%) (Auto) 12, Eosinophils (%) (Auto) 8, Basophils (%) (Auto) 0, Neutrophils # (Auto) 6.1, Lymphocytes # (Auto) 1.0, Monocytes # (Auto) 1.1H, Eosinophils # (Auto) 0.7H, Basophils # (Auto) 0.0, Prothrombin Time 13.1, INR Comment 1.0, Activated Partial Thromboplast Time 28, Sodium Level 130L, Potassium Level 4.0, Chloride Level 98, Carbon Dioxide Level 21, Anion Gap 11, Blood Urea Nitrogen 9, Creatinine 0.84, Estimat Glomerular Filtration Rate > 60 , BUN/Creatinine Ratio 11, Glucose Level 167H, Calcium Level 9.4, Magnesium Level 1.9, Total Bilirubin 0.8, Aspartate Amino Transf (AST/SGOT) 20, Alanine Aminotransferase (ALT/SGPT) 22, Alkaline Phosphatase 71, Myoglobin 35.6, Troponin I < 0.30, B-Type Natriuretic Peptide 13.9, Total Protein 7.3, Albumin 4.4, Lipase 16 09/29/17 18:05: Troponin I < 0.30 09/30/17 04:05: Sodium Level 134L, Potassium Level 4.3, Chloride Level 103, Carbon Dioxide Level 20L, Anion Gap 11, Blood Urea Nitrogen 9, Creatinine 0.87, Estimat Glomerular Filtration Rate > 60, BUN/Creatinine Ratio 10, Glucose Level 169H, Calcium Level 8.8, Magnesium Level 2.2, Total Bilirubin 0.7, Aspartate Amino Transf (AST/SGOT) 16, Alanine Aminotransferase (ALT/SGPT) 22, Alkaline Phosphatase 61, Troponin I < 0.30, Total Protein 6.4, Albumin 3.9, Triglycerides Level 185H, Cholesterol Level 185, LDL Cholesterol Direct 117, VLDL Cholesterol 37, HDL Cholesterol 49 A/P: Assessment: Chest pain of undetermined etiology - no evidence of ACS MPI of October 26, 2013 did not show ischemia or infarction and LVEF was 58% Echo fo 11/11/13 showed LVEF 55% and mild MR & TR and PASP 25-30 mmHhg Hyperglycemia, suggestive of DM II Elevated BMI of approx 32.7 Heavy alcohol use (approx 40-45 beers per week) Hypertension - improved with beta-marguerite therapy Hyponatremia upon presentation in October 2013 and lab of September 29, 2017, probably related to heavy alcohol use resulting in diuresis Elevated triglycerides during hospitalization of October 2013 Chews tobacco. Cessation has been advised Non-compliance with f/u Plan: * We discussed risk factor mod * We advised him to avoid alcohol use * MPI today on which would be based further decisions Clinical Quality Measures AMI/AHF: ASA po Prior to arrival: ESTHER Meng MD FACP FAC CCDS September 30, 2017 07:50
--- NOTE | 2017-09-30 07:59 | Progress Note (SOAP) ---
Subjective Time Seen by Provider: 07:55 Subjective/Events-last exam Patient feeling better today. Not complaining of any chest pain. Past stress test this morning. Fasting blood sugar 169 to order hemoglobin A1c. If patient discharged today we'll see in one week Objective Exam Vital Signs Date Time Temp Pulse Resp B/P (MAP) Pulse Ox O2 Delivery O2 Flow Rate FiO2 09/30/17 04:00 96.2 78 18 143/86 (105) 98 Room Air 09/30/17 01:00 62 09/29/17 23:57 96.1 70 18 138/87 (104) 97 Room Air 09/29/17 19:47 65 09/29/17 19:25 98.0 59 18 153/66 (95) 95 Room Air 09/29/17 15:45 97.2 61 18 144/80 (101) 98 Room Air 09/29/17 12:57 97.7 73 20 170/103 (125) 99 Room Air 09/29/17 12:40 79 09/29/17 11:06 97.5 85 18 123/80 (137) 99 Room Air 09/29/17 09:06 97.5 09/29/17 08:40 97.5 89 18 175/119 (137) Room Air I & O 09/30/17 07:00 Intake Total 2660 ml Output Total 3450 ml Balance -790 ml Capillary Refill : NONE General Appearance: No Apparent Distress, WD/WN HEENT: Normal ENT Inspection Neck: Full Range of Motion, Normal Inspection Respiratory: No Accessory Muscle Use, No Respiratory Distress Cardiovascular: Regular Rate, Rhythm, No Murmur Gastrointestinal: non tender, soft Results Lab Laboratory Tests 09/29/17 09:15 09/30/17 04:05 Laboratory Tests 09/29/17 09:15: White Blood Count 8.8, Red Blood Count 4.26L, Hemoglobin 15.1, Hematocrit 42, Mean Corpuscular Volume 97, Mean Corpuscular Hemoglobin 35H, Mean Corpuscular Hemoglobin Concent 36, Red Cell Distribution Width 11.2, Platelet Count 222, Mean Platelet Volume 8.9, Neutrophils (%) (Auto) 69, Lymphocytes (%) (Auto) 11L , Monocytes (%) (Auto) 12, Eosinophils (%) (Auto) 8, Basophils (%) (Auto) 0, Neutrophils # (Auto) 6.1, Lymphocytes # (Auto) 1.0, Monocytes # (Auto) 1.1H, Eosinophils # (Auto) 0.7H, Basophils # (Auto) 0.0, Prothrombin Time 13.1, INR Comment 1.0, Activated Partial Thromboplast Time 28, Sodium Level 130L, Potassium Level 4.0, Chloride Level 98, Carbon Dioxide Level 21, Anion Gap 11, Blood Urea Nitrogen 9, Creatinine 0.84, Estimat Glomerular Filtration Rate > 60 , BUN/Creatinine Ratio 11, Glucose Level 167H, Calcium Level 9.4, Magnesium Level 1.9, Total Bilirubin 0.8, Aspartate Amino Transf (AST/SGOT) 20, Alanine Aminotransferase (ALT/SGPT) 22, Alkaline Phosphatase 71, Myoglobin 35.6, Troponin I < 0.30, B-Type Natriuretic Peptide 13.9, Total Protein 7.3, Albumin 4.4, Lipase 16 09/29/17 18:05: Troponin I < 0.30 09/30/17 04:05: Sodium Level 134L, Potassium Level 4.3, Chloride Level 103, Carbon Dioxide Level 20L, Anion Gap 11, Blood Urea Nitrogen 9, Creatinine 0.87, Estimat Glomerular Filtration Rate > 60, BUN/Creatinine Ratio 10, Glucose Level 169H, Calcium Level 8.8, Magnesium Level 2.2, Total Bilirubin 0.7, Aspartate Amino Transf (AST/SGOT) 16, Alanine Aminotransferase (ALT/SGPT) 22, Alkaline Phosphatase 61, Troponin I < 0.30, Total Protein 6.4, Albumin 3.9, Triglycerides Level 185H, Cholesterol Level 185, LDL Cholesterol Direct 117, VLDL Cholesterol 37, HDL Cholesterol 49 Assessment/Plan Assessment/Plan Assess & Plan/Chief Complaint Chest pain. Hypertension history. Elevated sugar. Patient feeling better today Stress test today Clinical Quality Measures Admission Status Admission Dx Chest pressure. Chest pain. Hypertension. Chews tobacco. Drinks beer 20-30 a week AMI/AHF: ASA po Prior to arrival: No DVT/VTE Risk/Contraindication: Risk Factor Score Per Nursin RFS Level Per Nursing on Admit: 2=Moderate SAYRA NICHOLE DO September 30, 2017 07:59
--- NOTE | 2017-09-30 08:31 | Progress Note-Cardiology ---
Cardiology SOAP Progress Note Subjective: No further c/o CP. No c/o SOB, palpitations, syncope or near syncope. Objective: I&O/Vital Signs 09/30/17 09/30/17 09/30/17 09/30/17 07:00 08:42 09:31 09:34 Temp 98.0 Pulse 73 60 64 92 Resp 18 18 B/P (MAP) 141/88 (105) 137/99 (112) 154/101 (118) Pulse Ox 96 98 98 O2 Delivery Room Air Room Air Room Air 09/30/17 09/30/17 09/30/17 12:00 13:00 14:25 Temp 97.1 Pulse 60 94 Resp 20 B/P (MAP) 171/93 (119) Pulse Ox 99 O2 Delivery Room Air 09/30/17 00:00 Intake Total 1660 ml Output Total 2150 ml Balance -490 ml Weight (Pounds): 215 Weight (Ounces): 5.0 Weight (Calculated Kilograms): 97.942464 Constitutional: AAO x 3, well-developed, well-nourished Respiratory: No accessory muscle use, No respiratory distress; chest expansion is symmetric, chest is bilaterally symmetric, lungs clear to percussion, lungs clear to auscultation Cardiovascular: regular rate-rhythm; No JVD; S1 and S2 Gastrointestional: No tender; soft, round, distended, audible bowel sounds Extremities: no lower extremity edema bilateral Neurologic/Psychiatric: grossly intact, power is 5/5 both on sides Skin: No rash, No ulcerations Results/Procedures: Labs Laboratory Tests 09/29/17 18:05: Troponin I < 0.30 09/30/17 04:05: Troponin I < 0.30, Sodium Level 134L, Potassium Level 4.3, Chloride Level 103, Carbon Dioxide Level 20L, Anion Gap 11, Blood Urea Nitrogen 9, Creatinine 0.87, Estimat Glomerular Filtration Rate > 60, BUN/Creatinine Ratio 10, Glucose Level 169H, Calcium Level 8.8, Magnesium Level 2.2, Total Bilirubin 0.7, Aspartate Amino Transf (AST/SGOT) 16, Alanine Aminotransferase (ALT/SGPT) 22, Alkaline Phosphatase 61, Total Protein 6.4, Albumin 3.9, Triglycerides Level 185H, Cholesterol Level 185, LDL Cholesterol Direct 117, VLDL Cholesterol 37, HDL Cholesterol 49 A/P: Assessment: Chest pain of undetermined etiology - no further reoccurrence MPI of September 30, 2017 did not show ischemia or infarction Echo of September 29, 2017 showed LVEF 60-65%. Grade 1 diastolic dysfunction. LVH. PASP 30-35 mmHhg Hyperglycemia, suggestive of DM II Elevated BMI of approx 32.7 Heavy alcohol use (approx 40-45 beers per week) Hypertension - improved with beta-marguerite therapy Hyponatremia upon presentation in October 2013 and lab of September 29, 2017, probably related to heavy alcohol use resulting in diuresis Elevated triglycerides Chews tobacco. Cessation has been advised Non-compliance with f/u Plan: * We discussed risk factor mod * We advised him to avoid alcohol use * MPI today did not show any evidence of ischemia or infarction * BP improved * Continue current medication regimen * Out pt f/u in 2 weeks Physician Assessment Physician Assessment Please also see my separate note of the same date Clinical Quality Measures AMI/AHF: ASA po Prior to arrival: JOSELITO Mejia V[employer] September 30, 2017 08:31 ESTHER DIANA MD FACP FAC CCDS September 30, 2017 16:01
[2017-09-30 08:42] VITALS: BP 141/88
[2017-09-30] MEDS ORDERED: REGADENOSON 0.4 MG/5 ML SYR (LEXISCAN) IV ONE ×2 (08:43→09:30)
[2017-09-30] MEDS ORDERED: meTOproloL SUCCINATE 50 MG (TOPROL XL) TAB PO SCH (09:00)
[2017-09-30] MEDS ORDERED: ASPIRIN 325 MG (5 GR) TABLET PO SCH (09:00)
[2017-09-30] MEDS ORDERED: lisINopril 10 MG (PRINIVIL) TABLET PO SCH (09:00)
[2017-09-30 09:31] VITALS: BP 137/99
[2017-09-30 09:34] VITALS: BP 154/101
[2017-09-30] MEDS ORDERED: ASPIRIN E.C. 81 MG (ECOTRIN) TAB PO SCH (11:27)
[2017-09-30 12:00] VITALS: BP 171/93
[2017-09-30] MEDS ORDERED: METO-370 PO (13:09)
[2017-09-30] MEDS ORDERED: ASPI-983 PO (13:09)
--- NOTE | 2017-09-30 16:03 | STRESS TEST ---
DATE OF SERVICE: 09/30/2017 PROCEDURE: Resting and post regadenoson technetium-99m Tetrofosmin SPECT CT imaging. ORDERING PHYSICIAN: Valentina Chang APRN PRIMARY PHYSICIAN: Dr. Childress. OTHER PHYSICIAN: Dr. Hilton. CLINICAL DIAGNOSIS: Chest pain. DESCRIPTION: Baseline images were carried out after injection of 10.19 mCi of technetium-99m Tetrofosmin. This was followed by 0.4 mg regadenoson and 28.9 mCi technetium-99m Tetrofosmin for stress imaging. The electrocardiogram showed sinus rhythm at baseline and it did not change significantly with the regadenoson infusion. He noted some shortness of breath and flushing following regadenoson infusion, which resolved in a few minutes. Review of images at rest and following stress does not indicate any significant perfusion defects consistent with significant myocardial ischemia or infarction. Gated images show normal global left ventricular systolic function with normal regional wall motion. Left ventricular ejection fraction is calculated to be 58%. Left ventricular end diastolic volume is 81 mL. TID is absent (1.07). CONCLUSIONS: 1. No evidence of any significant myocardial ischemia or infarction on the study. 2. Normal regional wall motion. 3. Normal global left ventricular systolic function with a calculated ejection fraction of 58%. Job ID: [id number] DocumentID: [id number] Dictated Date: 09/30/2017 12:51:16 Claims Investigator Date: 09/30/2017 15:34:40 Dictated By: ESTHER HILTON MD, MA, FACP, FACC,
--- NOTE | 2017-10-02 06:55 | Clinic Account Progress/Dx ---
Clinic Account Progress/Dx DIAGNOSIS: Time Seen by Provider: 06:55 Chest pain noncardiac. Acid reflux. Hyponatremia. Prediabetic. History of alcohol use. Chewing tobacco. Hemoglobin A1c 6.3 SAYRA NICHOLE DO October 02, 2017 06:55
== END 2017-09-30 13:10 | disposition home or self-care (01) ==
LOC: EDUNIT# 08:35 → ER 08:37 → UNDOADMOB 10:20 → 4TH 10:20 → UNDODISOB 09-30 14:30
PROVIDERS: ADMIT Family Medicine; ATTEND Family Medicine
DX: R07.9 Chest pain, unspecified (principal); R73.9 Hyperglycemia, unspecified; I10 Essential (primary) hypertension; E87.1 Hypo-osmolality and hyponatremia; E78.1 Pure hyperglyceridemia; F17.220 Nicotine dependence, chewing tobacco, uncomplicated; F10.10 Alcohol abuse, uncomplicated; Z91.19 Patient's noncompliance with other medical treatment and regimen
CPT/HCPCS: 36415; 71045; 78452; 80053; 80061; 83036; 83690; 83735; 83874; 83880; 84484; 85025; 85610; 85730; 93005; 93017; 93041; 93306; G0378

== ENCOUNTER 2021-05-18 09:58 | Outpatient (CLI) | payer BC ==
[~2021-05-18] VITALS: Ht 172.7 cm; Wt 97.7 kg
[~2021-05-18 09:58] MED LIST changes: +ALPR.25T PO; +ASPI-1238 PO; +ASPI-808 PO; +LISI10TA25 PO; +METO50TA7 PO; +MULT-35 PO; +PANT40TA52 PO
[2021-05-18 10:23] VITALS: BP 154/83
[2021-05-18] MEDS ORDERED: diphenhydrAMINE 50 MG/ML INJ (BENADRYL) IV PRN (10:30)
[2021-05-18] MEDS ORDERED: ONDANSETRON 4 MG/2 ML (SDV) Z0FRAN IV PRN (10:30)
[2021-05-18] MEDS ORDERED: ACETAMINOPHEN 500 MG TAB (TYLENOL) PO PRN (10:30)
[2021-05-18] MEDS ORDERED: EPINEPHrine INJECTION 1 MG/ML AMP IM PRN (10:30)
[2021-05-18] MEDS ORDERED: SOTROVIMAB 500 MG/NS 100 ML IVPB IV ONE ×2 (10:30)
[2021-05-18 12:02] VITALS: BP 122/85
== END 2021-05-18 11:58 ==
LOC: INFUSION 09:58
PROVIDERS: ATTEND Nurse Practitioner Family
DX: U07.1 COVID-19 (principal)